=== PATIENT | male | born 1975 ===

== ENCOUNTER 2019-07-11 09:43 | Emergency (ER) | payer BC ==
--- NOTE | 2019-07-11 11:01 | UC ---
Throat Pain/Nasal Omkar HPI - HPI Summary HPI Summary: Patient is a 44yo male presenting with c/o sore throat, swollen uvula, nasal congestion, and PND x2 days. Patient notes nonproductive cough as well. Denies SOB and wheezing. Denies n/v/d. Notes chills. Denies fevers. Denies headache. Patient states he is here on vacation and going back home to [place] where he is visiting his father and "wants to get better before he sees him." Patient does have h/o allergies and wears CPAP machine at night. Smokes "occasionally when stressed." - History of Current Complaint Chief Complaint: UCRespiratory Stated Complaint: RESO COMPLAINT Hx Obtained From: Patient Onset/Duration: Sudden Onset, Lasting Days Severity: Mild Pain Intensity: 3 Pain Scale Used: 0-10 Numeric - Allergies/Home Medications Allergies/Adverse Reactions: Allergies Allergy/AdvReac Type Severity Reaction Status Date / Time No Known Allergies Allergy Verified 07/11/19 09:56 Home Medications: Home Medications NK [No Home Medications Reported] 07/11/19 [History Confirmed 07/11/19] PMH/Surg Hx/FS Hx/Imm Hx - Surgical History Surgical History: None - Family History Known Family History: Positive: Unknown, Non-Contributory - Social History Occupation: Employed Full-time Lives: With Family Alcohol Use: Rare Substance Use Type: None Smoking Status (MU): Current Some Day Smoker Review of Systems All Other Systems Reviewed And Are Negative: Yes Constitutional: Positive: Chills. Negative: Fever ENT: Positive: Sore Throat, Nasal Discharge - PND, Sinus Congestion. Negative: Ear Ache, Sinus Pain/Tenderness Respiratory: Positive: Cough - dry. Negative: Shortness Of Breath Cardiovascular: Positive: Negative Gastrointestinal: Positive: Negative Musculoskeletal: Positive: Negative Neurological: Positive: Negative Physical Exam Triage Information Reviewed: Yes Appearance: Well-Appearing, No Pain Distress, Well-Nourished Vital Signs: Initial Vital Signs Temp 99.3 F 07/11/19 09:53 Pulse 100 07/11/19 09:53 Resp 20 07/11/19 09:53 BP 130/77 07/11/19 09:53 Pulse Ox 100 07/11/19 09:53 Lab Results 07/11/19 Range/Units 11:36 Group A Strep Rapid Negative (Negative) Vital Signs Reviewed: Yes Eyes: Positive: Conjunctiva Clear ENT: Positive: Hearing grossly normal, Pharyngeal erythema, Nasal congestion, Nasal drainage - PND, TMs normal, Uvula midline - small ulceration noted. Negative: Tonsillar swelling, Tonsillar exudate, Sinus tenderness Neck exam: Normal Neck: Positive: Supple, Nontender, No Lymphadenopathy Respiratory Exam: Normal Respiratory: Positive: Lungs clear, Normal breath sounds, No respiratory distress Cardiovascular Exam: Normal Cardiovascular: Positive: RRR Neurological: Positive: Alert Psychological: Positive: Age Appropriate Behavior Throat Pain/Nasal Course/Dx - Course Course Of Treatment: Discussed viral illness and symptomatic treatment with patient. Instructed to follow up with PCP at home if symptoms persist. Patient voiced understanding and agreed with treatment plan. - Differential Dx/Diagnosis Provider Diagnosis: Upper respiratory infection Discharge ED - Sign-Out/Discharge Documenting (check all that apply): Patient Departure All imaging exams completed and their final reports reviewed: No Studies - Discharge Plan Condition: Stable Disposition: HOME Patient Education Materials: Upper Respiratory Infection (ED) Referrals: No Primary Care Phys,NOPCP [Primary Care Provider] - Additional Instructions: As discussed, your rapid strep test was negative today. Your symptoms are likely caused by a virus and should resolve on their own with time. You may continue with Mucinex to help reduce mucus production. You may also add Flonase and claritin for symptomatic relief. Throat lozenges and throat sprays may also help soothe your throat. Follow up with your primary care physician if symptoms persist. - Billing Disposition and Condition Condition: STABLE Disposition: Home - Attestation Statements Provider Attestation: Per institutional requirements, I have reviewed the chart, however, I was not consulted specifically or made aware of this patient by the midlevel provider. I did not personally evaluate, interact with , or disposition this patient.
== END 2019-07-11 12:04 | disposition home or self-care (01) ==
LOC: UCEAST 09:43
DX: J06.9 Acute upper respiratory infection, unspecified (principal); R09.82 Postnasal drip; F17.200 Nicotine dependence, unspecified, uncomplicated
CPT/HCPCS: 87651; 99201; G0463